=== PATIENT | male | born 1970 | race African-American/Black ===

== ENCOUNTER 2017-03-08 15:43 | Emergency (ER) | payer SELFPAY ==
[~2017-03-08] VITALS: Ht 203.2 cm; Wt 144.0 kg
[2017-03-08 16:03] VITALS: BP 127/64
== END 2017-03-08 19:00 | disposition left against medical advice (07) ==
LOC: ER 16:03
DX: Z53.21 Procedure and treatment not carried out due to patient leaving prior to being seen by health care provider (principal)

== ENCOUNTER 2025-01-24 13:31 | Emergency (ER) | payer MEDICARE, MEDICAID ==
[~2025-01-24] VITALS: Ht 198.1 cm; Wt 131.0 kg
[2025-01-24 13:42] VITALS: TEMP 36.7; O2SAT 99
[2025-01-24] MEDS: KETOROLAC 15MG/ML VIAL IM ONE (14:09)
[2025-01-24] MEDS: LIDOCAINE 5% PATCH TOP SCH (14:09)
[2025-01-24] MEDS: ACETAMINOPHEN 325MG TABLET PO ONE (14:10)
[2025-01-24 16:46] VITALS: BP 122/77; PULSE 68; RESP 14; O2SAT 96
== END 2025-01-24 17:01 | disposition home or self-care (01) ==
LOC: ER 13:31
DX: M54.2 Cervicalgia (principal); E11.9 Type 2 diabetes mellitus without complications; I10 Essential (primary) hypertension
CPT/HCPCS: 99285; 70450; 72125; 96372; J1885